=== PATIENT | female | born 2005 | race Hispanic/Latino ===

== ENCOUNTER 2024-01-19 23:05 | Day surgery (SDC) | payer OTHER ==
[2024-01-19 23:25] VITALS: BMI 35.2
== END 2024-01-20 00:29 | disposition home or self-care (01) ==
LOC: CSHLD/OP 23:05
PROVIDERS: ATTEND Emergency Medicine
DX: O46.93 Antepartum hemorrhage, unspecified, third trimester (principal); N93.0 Postcoital and contact bleeding; O47.1 False labor at or after 37 completed weeks of gestation; O00.01 Abdominal pregnancy with intrauterine pregnancy; Z79.899 Other long term (current) drug therapy; Z3A.39 39 weeks gestation of pregnancy
CPT/HCPCS: 99282

== ENCOUNTER 2024-01-26 19:46 | Inpatient (IN) | payer OTHER ==
[2024-01-26 20:07] VITALS: BMI 26.5
[2024-01-26] MEDS ORDERED: Oxytocin 30 units/NS 500 ML 500 ML IV SCH ×2 (21:00→21:30)
[2024-01-26] MEDS ORDERED: Ibuprofen 800 MG TAB PO PRN (21:00)
[2024-01-26] MEDS ORDERED: hydrALAZINE 20 MG/ML VIAL SLOW IVP PRN (21:00)
[2024-01-26] MEDS ORDERED: Diphenoxylate HCl/Atropine Tablet PO PRN (21:00)
[2024-01-26] MEDS ORDERED: Promethazine HCl 25 MG/ML VIAL IM PRN (21:00)
[2024-01-26] MEDS ORDERED: Butorphanol Tartrate 1 MG/ML VIAL SLOW IVP PRN (21:00)
[2024-01-26] MEDS ORDERED: Misoprostol 200 MCG TAB PR PRN (21:00)
[2024-01-26] MEDS ORDERED: Carboprost 250 MCG/ML AMP IM PRN (21:00)
[2024-01-26] MEDS ORDERED: fentaNYL 50 mcg/mL 1 mL Vial SLOW IVP PRN (21:00)
[2024-01-26] MEDS ORDERED: Lidocaine 1% (PF) 30 ML VIAL SC PRN (21:00)
[2024-01-26] MEDS ORDERED: Misoprostol 100 MCG TAB VAG SCH ×2 (21:00)
[2024-01-26] MEDS ORDERED: Docusate 100 MG CAP PO PRN (21:00)
[2024-01-26 22:09] LABS: Hematocrit 39.2 % (34.9-44.5); Hemoglobin 13.1 g/dL (12.0-15.5); Mean Corpuscular HGB CONC 33.4 g/dL (32.0-36.0); Mean Corpuscular Hemoglobin 27.8 pg (27.0-33.0); Mean Corpuscular Volume 83.2 fl (81.6-98.3); Platelet Count 264 10x3/uL (150-450); RBC Distribution Width 14.7 % (11.5-14.5); Red Blood Cell (RBC) Count 4.71 10x6/uL (3.90-5.03); White Blood Cell (WBC) Count 12.2 10x3/uL (3.5-10.5)
[2024-01-26 23:13] LABS: HBsAg Index 0.19 S/CO (0-0.99); Hep B Surf Ag - L&D Non-Reactive S/CO (NonReactive)
[2024-01-26 23:14] LABS: Syphilis Antibody Nonreactive (Nonreactive); Syphilis Antibody Index 0.04 S/CO (<1.00 Non-Reactive)
[2024-01-27] MEDS: Oxytocin 30 units/NS 500 ML 500 ML IV SCH (04:30)
[2024-01-27] MEDS: Ondansetron PF 4 MG/2 ML Vial IVP PRN (08:35)
[2024-01-27] MEDS: fentaNYL/Ropivacaine Epidural 100 ML ONE (09:39)
[2024-01-27] MEDS ORDERED: Lactated Ringer's 500 ML IV PRN (09:50)
[2024-01-27] MEDS ORDERED: ePHEDrine Sulfate 50 MG/10 ML VIAL SLOW IVP PRN (09:50)
[2024-01-27] MEDS ORDERED: Promethazine HCl 25 MG/ML VIAL IM PRN (09:50)
[2024-01-27] MEDS ORDERED: Naloxone HCl 0.4 mg/ml Vial IVP PRN ×2 (09:50)
[2024-01-27] MEDS ORDERED: Moisturizing Cream (Eucerin) 113 GM JAR TOP PRN (09:50)
[2024-01-27] MEDS ORDERED: Acetaminophen 325 MG TAB PO PRN (09:50)
[2024-01-27] MEDS ORDERED: Ondansetron PF 4 MG/2 ML Vial IVP PRN (09:50)
[2024-01-27] MEDS ORDERED: diphenhydrAMINE 50 MG/ML VIAL IVP PRN (09:50)
[2024-01-27] MEDS ORDERED: Communication Order-Pharmacy FS SCH (10:00)
[2024-01-27] MEDS: Acetaminophen 500 MG TAB PO PRN (17:55)
[2024-01-27] MEDS: fentaNYL 2 mcg/Ropivacaine 0.2% Epidural 100 ML CADD EPIDURAL SCH (18:21)
[2024-01-27] MEDS: Lactated Ringer's 1,000 ML IV SCH (21:12)
[2024-01-28] MEDS ORDERED: Famotidine/PF 20 mg/2ml Vial SLOW IVP PRN (02:43)
[2024-01-28] MEDS ORDERED: Bicitra 30 ML UDCUP PO PRN (02:43)
[2024-01-28] MEDS ORDERED: Meperidine HCl/PF 25 MG (1 mL) VIAL SLOW IVP PRN (03:12)
[2024-01-28] MEDS ORDERED: Naloxone HCl 0.4 mg/ml Vial IVP PRN ×2 (03:12)
[2024-01-28] MEDS ORDERED: Promethazine HCl 25 MG/ML VIAL IM PRN (03:12)
[2024-01-28] MEDS ORDERED: Naloxone HCl 0.4 mg/ml Vial IV PRN (03:12)
[2024-01-28] MEDS ORDERED: Moisturizing Cream (Eucerin) 113 GM JAR TOP PRN (03:12)
[2024-01-28] MEDS ORDERED: Ondansetron PF 4 MG/2 ML Vial IVP PRN ×2 (03:12)
[2024-01-28] MEDS ORDERED: diphenhydrAMINE 50 MG/ML VIAL IVP PRN (03:12)
[2024-01-28] MEDS: Azithromycin 500 MG in Sodium Chloride 0.9% 250 ML 250 ML IVPB SCH (03:14)
[2024-01-28] MEDS ORDERED: Communication Order-Pharmacy FS SCH (03:15)
[2024-01-28] MEDS: CEFAZOLIN 2 GM in Sodium Chloride 0.9% 100 ML IVPB SCH (03:15)
[2024-01-28] MEDS: Methylergonovine 0.2 MG/ML VIAL IM PRN (03:23)
[2024-01-28] MEDS: Tranexamic Acid 1,000 MG/10 ML VIAL IVP PRN (04:48)
[2024-01-28] MEDS: fentaNYL 50 mcg/mL 1 mL Vial SLOW IVP PRN (05:35)
[2024-01-28 05:57] LABS: D-Dimer Test 10.85 mcg/mL (0.19-0.50); PTT 22.3 sec (22.0-33.0); Prothrombin Time 10.9 sec (9.5-12.1)
[2024-01-28] MEDS ORDERED: Methylergonovine 0.2 MG/ML VIAL IM PRN (08:16)
[2024-01-28] MEDS ORDERED: Boostrix 0.5 ML (Tdap) VIAL (>/=7 yrs of age) IM ONE (08:16)
[2024-01-28] MEDS ORDERED: Oxytocin 30 units/NS 500 ML 500 ML IV SCH (08:16)
[2024-01-28] MEDS ORDERED: Misoprostol 200 MCG TAB PR PRN (08:16)
[2024-01-28] MEDS ORDERED: hydrALAZINE 20 MG/ML VIAL SLOW IVP PRN (08:16)
[2024-01-28] MEDS ORDERED: Lanolin Ointment 7 GM TUBE TOP PRN (08:16)
[2024-01-28] MEDS ORDERED: diphenhydrAMINE 25 MG CAP PO PRN (08:16)
[2024-01-28] MEDS: Clindamycin/D5W 900 MG in Premix 1 BAG IVPB SCH (08:36)
[2024-01-28] MEDS: GENTAMICIN IVPB SCH (08:40)
[2024-01-28] MEDS: ADMIXTURE FEE IVPB SCH (08:40)
[2024-01-28] MEDS: SODIUM CHLORIDE IVPB SCH (08:40)
[2024-01-28 08:45] LABS: Hematocrit 31.1 % (34.9-44.5); Hemoglobin 10.6 g/dL (12.0-15.5); MDiff Complete? YES; Mean Corpuscular HGB CONC 34.1 g/dL (32.0-36.0); Mean Corpuscular Hemoglobin 28.2 pg (27.0-33.0); Mean Corpuscular Volume 82.7 fL (81.6-98.3); Mean Platelet Volume 10.9 fL (7.4-10.4); Platelet Count 218 10x3/uL (150-450); RBC Distribution Width 14.9 % (11.5-14.5); Red Blood Cell (RBC) Count 3.76 10x6/uL (3.90-5.03); White Blood Cell (WBC) Count 17.9 10x3/uL (3.5-10.5)
[2024-01-28 08:56] LABS: Prothrombin Time 10.9 sec (9.5-12.1)
[2024-01-28 08:57] LABS: Lactic Acid 1.6 mmol/L (0.5-2.2)
[2024-01-28 09:02] LABS: ALT (SGPT) 7 U/L (8-55); AST (SGOT) 18 U/L (5-34); Albumin 2.2 g/dL (3.5-5.0); Alkaline Phosphatase 139 U/L (40-100); Anion Gap 16 mmol/L (10-20); BUN (Urea Nitrogen) 5 mg/dL (7.0-18.7); Bilirubin, Total 0.7 mg/dL (0.2-1.2); Calc. Creatinine Clearance 121 mL/min (70-130); Calcium 8.3 mg/dL (7.8-10.44); Carbon Dioxide 17 mmol/L (22-29); Chloride 110 mmol/L (98-107); Estimated GFR 123; Glucose 118 mg/dL (70-105); Potassium 3.7 mmol/L (3.5-5.1); Protein, Total 5.2 g/dL (6.0-8.3); Sodium 139 mmol/L (136-145)
[2024-01-28 09:17] LABS: Band 36 % (5-11); Lymphocytes 2 % (28-48); Monocytes 6 % (0-4); Myelocyte 1 % (0-0); Neutrophil 53 % (31-61); Reactive Lymphocytes 2 % (0-10)
[2024-01-28 09:19] LABS: Dohle Bodies SLIGHT; Platelet Adequacy Comment Appears Adequate; Polychromasia SLIGHT = 2-3 cells (100X) (0-2/hpf); Toxic Granulation SLIGHT
[2024-01-28 12:24] LABS: Hematocrit 27.9 % (34.9-44.5); Hemoglobin 9.6 g/dL (12.0-15.5); Mean Corpuscular HGB CONC 34.4 g/dL (32.0-36.0); Mean Corpuscular Hemoglobin 28.5 pg (27.0-33.0); Mean Corpuscular Volume 82.8 fL (81.6-98.3); Mean Platelet Volume 10.5 fL (7.4-10.4); Platelet Count 200 10x3/uL (150-450); Red Blood Cell (RBC) Count 3.37 10x6/uL (3.90-5.03); White Blood Cell (WBC) Count 20.3 10x3/uL (3.5-10.5)
[2024-01-28] MEDS: Ketorolac Tromethamine 30 MG (1 mL) VIAL IVP SCH (12:24)
[2024-01-28] MEDS: Ferrous Sulfate 325 MG TAB PO SCH (12:37)
[2024-01-28] MEDS: Prenatal Vitamin 1 TAB PO SCH (12:37)
[2024-01-28] MEDS: Lactated Ringer's 1,000 ML IV SCH ×2 (14:00→20:05)
[2024-01-28] MEDS: Simethicone Chewable 80 MG TAB PO PRN (16:36)
[2024-01-28] MEDS: Azithromycin 500 MG VIAL ONE (17:30)
[2024-01-28] MEDS: Promethazine HCl 25 MG/ML VIAL ONE (17:30)
[2024-01-28] MEDS: CEFAZOLIN 2 GM VIAL ONE (17:30)
[2024-01-28] MEDS: PHENYLEPHRINE-NS 100 MCG/ML 10 ML SYRINGE ONE (17:31)
[2024-01-28] MEDS: fentaNYL 50 mcg/mL 1 mL Vial ONE (17:31)
[2024-01-28] MEDS: Oxytocin 10 UNITS/ML VIAL ONE (17:31)
[2024-01-28] MEDS: Morphine PF 10 MG/10 ML VIAL ONE (17:31)
[2024-01-28] MEDS: Ondansetron PF 4 MG/2 ML Vial ONE (17:32)
[2024-01-28] MEDS: SUCCINYLCHOLINE/SOD CL,ISO/PF 200 MG/10 ML SYRINGE FS ONE (17:32)
[2024-01-28] MEDS: PROPOFOL 0 ML ONE (17:32)
[2024-01-28] MEDS: Dexamethasone 4 mg/ml Vial ONE (17:32)
[2024-01-28] MEDS: Lidocaine 2% MPF 10 ML AMP (For Epidural Use) ONE (17:32)
[2024-01-28] MEDS ORDERED: Bupivacaine/Epinephrine 0.25% 30 ML VIAL ONE (20:08)
[2024-01-29] MEDS: Lactated Ringer's 1,000 ML IV SCH ×2 (00:13→00:14)
[2024-01-29 03:25] LABS: Hematocrit 22.3 % (34.9-44.5); Hemoglobin 7.6 g/dL (12.0-15.5); Mean Corpuscular HGB CONC 34.1 g/dL (32.0-36.0); Mean Corpuscular Volume 82.3 fL (81.6-98.3); Mean Platelet Volume 10.4 fL (7.4-10.4); Platelet Count 160 10x3/uL (150-450); RBC Distribution Width 15.2 % (11.5-14.5); Red Blood Cell (RBC) Count 2.71 10x6/uL (3.90-5.03); White Blood Cell (WBC) Count 16.1 10x3/uL (3.5-10.5)
[2024-01-29 03:38] LABS: Lactic Acid 1.1 mmol/L (0.5-2.2)
[2024-01-29] MEDS: HYDROcodone/Acetaminophen 5/325 mg Tablet PO PRN ×2 (06:10→13:23)
[2024-01-29 13:32] LABS: Hematocrit 23.8 % (34.9-44.5); Hemoglobin 8.1 g/dL (12.0-15.5)
[2024-01-29] MEDS: Ibuprofen 800 MG TAB PO SCH (15:53)
[2024-01-30 04:28] LABS: #Basophils 0.05 10x3/uL (0.0-0.2); #Eosinphils 0.22 10x3/uL (0.0-0.5); #Monocytes 0.74 10x3/uL (0.0-1.1); #Neutrophils 13.66 10x3/uL (1.5-8.4); %Basophils 0.3 % (0.0-2.0); %Eosinophils 1.3 % (0.0-6.0); %Lymphocytes 12.9 % (18.0-47.0); %Monocytes 4.3 % (0.0-10.0); %Neutrophils 79.6 % (40.0-75.0); Hematocrit 23.5 % (34.9-44.5); Mean Corpuscular Volume 82.2 fL (81.6-98.3); RBC Distribution Width 15.2 % (11.5-14.5); Red Blood Cell (RBC) Count 2.86 10x6/uL (3.90-5.03); White Blood Cell (WBC) Count 17.2 10x3/uL (3.5-10.5)
[2024-01-30 04:33] LABS: Mean Platelet Volume 10.9 fL (7.4-10.4); Platelet Count 191 10x3/uL (150-450)
[2024-01-30] MEDS: Amoxicillin/Potassium Clav 875 MG TAB PO SCH (11:17)
[2024-01-30] MEDS: Clindamycin 150 MG CAP PO SCH ×2 (19:32→20:35)
[2024-01-30] MEDS: Ibuprofen 800 MG TAB PO SCH (19:40)
[2024-01-31 03:48] LABS: #Basophils 0.03 10x3/uL (0.0-0.2); #Eosinphils 0.18 10x3/uL (0.0-0.5); #Monocytes 0.64 10x3/uL (0.0-1.1); #Neutrophils 8.13 10x3/uL (1.5-8.4); %Basophils 0.3 % (0.0-2.0); %Eosinophils 1.6 % (0.0-6.0); %Lymphocytes 16.1 % (18.0-47.0); %Monocytes 5.7 % (0.0-10.0); %Neutrophils 72.3 % (40.0-75.0); Hematocrit 19.9 % (34.9-44.5); Hemoglobin 6.7 g/dL (12.0-15.5); Mean Corpuscular HGB CONC 33.7 g/dL (32.0-36.0); Mean Corpuscular Hemoglobin 27.5 pg (27.0-33.0); Mean Corpuscular Volume 81.6 fL (81.6-98.3); Mean Platelet Volume 10.9 fL (7.4-10.4); Platelet Count 204 10x3/uL (150-450); RBC Distribution Width 14.9 % (11.5-14.5); Red Blood Cell (RBC) Count 2.44 10x6/uL (3.90-5.03); White Blood Cell (WBC) Count 11.2 10x3/uL (3.5-10.5)
[2024-01-31] MEDS: Cyclobenzaprine 10 MG TAB PO SCH (08:08)
[2024-01-31] MEDS: Lidocaine 4% Patch TD SCH (08:09)
[2024-01-31] MEDS ORDERED: Sodium Ferric Gluconate 250 MG in Sodium Chloride 0.9% 250 ML 250 ML IVPB SCH (08:15)
[2024-01-31 08:39] VITALS: TEMP 98.5
[2024-01-31 10:18] VITALS: BP 118/72
[2024-01-31 13:51] LABS: Hematocrit 23.9 % (34.9-44.5); Hemoglobin 8.3 g/dL (12.0-15.5)
[2024-01-31] MEDS ORDERED: Transdermal Patch Removal TOP SCH (18:45)
== END 2024-01-31 15:45 | disposition home or self-care (01) | DRG 786 ==
LOC: CSHLD/OP 19:46 → CSHLD 23:41 → CSHPP 01-28 07:49
PROVIDERS: ADMIT Family Medicine; ATTEND Family Medicine
PROC: 4A1H7CZ Monitoring of Products of Conception, Cardiac Rate, Via Natural or Artificial Opening (ICD-10-PCS; 2024-01-26)
PROC: 10D00Z1 Extraction of Products of Conception, Low, Open Approach (ICD-10-PCS; principal; 2024-01-27)
PROC: 10H07YZ Insertion of Other Device into Products of Conception, Via Natural or Artificial Opening (ICD-10-PCS; 2024-01-27)
PROC: 3E033XZ Introduction of Vasopressor into Peripheral Vein, Percutaneous Approach (ICD-10-PCS; 2024-01-27)
PROC: 30233N1 Transfusion of Nonautologous Red Blood Cells into Peripheral Vein, Percutaneous Approach (ICD-10-PCS; 2024-01-31)
DX: O62.1 Secondary uterine inertia (principal); O99.42 Diseases of the circulatory system complicating childbirth; O72.1 Other immediate postpartum hemorrhage; O86.12 Endometritis following delivery; D62 Acute posthemorrhagic anemia; O99.03 Anemia complicating the puerperium; O76 Abnormality in fetal heart rate and rhythm complicating labor and delivery; G43.909 Migraine, unspecified, not intractable, without status migrainosus; Z37.0 Single live birth; R82.71 Bacteriuria; O77.0 Labor and delivery complicated by meconium in amniotic fluid; O99.892 Other specified diseases and conditions complicating childbirth; Z3A.41 41 weeks gestation of pregnancy; R00.0 Tachycardia, unspecified; O90.89 Other complications of the puerperium, not elsewhere classified; M25.572 Pain in left ankle and joints of left foot
CPT/HCPCS: 36415; 36416; 36430; 51702; 80053; 80170; 83605; 84443; 85025; 85027; 85049; 85300; 85362; 85384; 85610; 85730; 86780; 86850; 86900; 86901; 86922; 87040; 87340; 88307; 93005; 93010; 99285; J0456; J1100; J1580; J1885; J2210; J2274; J2405; J2550; J2590; J2704; J3010; J3490; J7050; J7120; P9016